=== PATIENT | male | born 1985 | race Caucasian/White ===

== ENCOUNTER 2022-01-03 09:00 | Emergency (ER) | payer SELFPAY ==
[~2022-01-03] VITALS: Ht 170.2 cm; Wt 80.0 kg
[2022-01-03] MEDS ORDERED: SODIUM CHLORIDE 0.9% 1,000 ML IV ONE (09:45)
[2022-01-03 10:29] LABS: BASOPHILS % 0.4 % (0.0-2.0); EOSINOPHILS % 0.2 % (0.0-5.0); HEMATOCRIT. 49.3 % (42.0-52.0); HEMOGLOBIN. 16.6 g/dL (14.0-18.0); LYMPHOCYTES % 35.1 % (20.0-50.0); MEAN CORPUSCULAR HEMOGLOBIN 32.1 pg (28.0-32.0); MEAN CORPUSCULAR VOLUME 95.5 fL (80.0-94.0); MEAN PLATELET VOLUME 9.5 fl (7.4-10.4); MONOCYTES % 4.1 % (2.0-8.0); NEUTROPHILS % 60.2 % (40.0-76.0); PLATELET 167 x1000/uL (130-400); RED BLOOD CELL COUNT 5.16 mill/uL (4.7-6.1); RED CELL DISTRIBUTION WIDTH 14.6 % (11.6-14.6)
[2022-01-03 10:36] LABS: CHLORIDE 108 mEq/L (98-107)
[2022-01-03 11:03] LABS: ETHANOL BLOOD 395 mg/dL
[2022-01-03 13:30] VITALS: BP 135/98
[2022-01-03 14:23] LABS: CLARITY URINE CLEAR (CLEAR); COLOR URINE YELLOW (YELLOW); KETONES URINE NEGATIVE (NEGATIVE); LEUKOCYTE ESTERASE URINE NEGATIVE (NEGATIVE); NITRITE URINE NEGATIVE (NEGATIVE); OCCULT BLOOD URINE NEGATIVE (NEGATIVE); PROTEIN URINE NEGATIVE (NEGATIVE); SPECIFIC GRAVITY URINE 1.008 (1.005-1.030); UROBILINOGEN URINE 0.2 E.U./dL (0.2-1.0)
[2022-01-03 14:36] LABS: *AMPHETAMINES SCREEN URINE NEGATIVE (NEGATIVE); *BARBITURATES SCREEN URINE NEGATIVE (NEGATIVE); *BENZODIAZEPINES SCREEN URINE NEGATIVE (NEGATIVE); *COCAINE SCREEN URINE NEGATIVE (NEGATIVE); CANNABINOID URINE SCREEN NEGATIVE (NEGATIVE); METHADONE URINE SCREEN NEGATIVE (NEGATIVE); OPIATES URINE SCREEN NEGATIVE (NEGATIVE); PHENCYCLIDINE URINE SCREEN NEGATIVE (NEGATIVE)
== END 2022-01-03 16:57 | disposition home or self-care (01) ==
LOC: EDBD 09:27 → ER 09:27
DX: F10.129 Alcohol abuse with intoxication, unspecified (principal); Y90.0 Blood alcohol level of less than 20 mg/100 ml; R41.0 Disorientation, unspecified
CPT/HCPCS: 36415; 70450; 71045; 80053; 80305; 80307; 80320; 80329; 81003; 85025; 93005; 96360; 96361; 99285; J7030; G0480